=== PATIENT | female | born 1975 | race Caucasian/White ===

== ENCOUNTER 2021-06-29 13:36 | Emergency (ER) | payer BC, OTHER ==
[~2021-06-29] VITALS: Ht 170.2 cm; Wt 69.9 kg
--- NOTE | 2021-06-29 14:02 | NUR ---
PT SEEN AND EVALUATED BY DR MEDELLIN.
[2021-06-29] MEDS ORDERED: ACETAMINOPHEN ES 500 MG TABLET PO ONE (14:15)
[2021-06-29] MEDS ORDERED: ACETAMINOPHEN ES 500 MG TABLET ONE (14:22)
[2021-06-29] MEDS ORDERED: ONDANSETRON ODT 4 MG TAB.RAPDIS SL ONE (15:00)
[2021-06-29] MEDS ORDERED: IBUPROFEN 800 MG TABLET PO ONE (15:00)
[2021-06-29] MEDS ORDERED: ONDA4TAB11 PO (15:09)
--- NOTE | 2021-06-29 15:33 | NUR ---
Pt denies being nauseous at time of D/C, so refused nausea med. Patient discharged to home in stable condition. Written and verbal after care instructions given. Patient verbalizes understanding of instructions. Stressed follow up or return to ER for worsening s/s.
[2021-06-29] MEDS ORDERED: IBUPROFEN 800 MG TABLET ONE (15:34)
[2021-06-29 15:35] VITALS: BP 115/80
== END 2021-06-29 15:30 | disposition home or self-care (01) ==
LOC: ER 13:38
DX: S06.0X0A Concussion without loss of consciousness, initial encounter (principal); W21.05XA Struck by basketball, initial encounter; Y93.9 Activity, unspecified; Y92.89 Other specified places as the place of occurrence of the external cause; Z88.8 Allergy status to other drugs, medicaments and biological substances
CPT/HCPCS: 70450; A4663; A9150

== ENCOUNTER 2021-08-26 11:49 | Emergency (ER) | payer OTHER ==
[~2021-08-26] VITALS: Ht 170.2 cm; Wt 69.9 kg
[~2021-08-26 11:49] MED LIST: ONDA4TAB11 PO
[2021-08-26] MEDS ORDERED: KETOROLAC TROMETHAMINE 15 MG INJ IVP ONE (13:15)
[2021-08-26] MEDS ORDERED: PROCHLORPERAZINE EDISYLATE 10 MG/2 ML VIAL IV ONE (13:15)
[2021-08-26] MEDS ORDERED: IV NORMAL SALINE 1000 ML BAG IV ONE (13:15)
[2021-08-26] MEDS ORDERED: KETOROLAC TROMETHAMINE 15 MG INJ ONE (13:28)
[2021-08-26] MEDS ORDERED: PROCHLORPERAZINE EDISYLATE 10 MG/2 ML VIAL ONE (13:28)
--- NOTE | 2021-08-26 14:17 | NUR ---
pt ambualted with steady gait. pt says feels better and is readyto go home.
--- NOTE | 2021-08-26 14:30 | NUR ---
pt expresses anxiety, md notified.
--- NOTE | 2021-08-26 14:34 | NUR ---
Patient discharged to home in stable condition. Written and verbal after care instructions given. Patient verbalizes understanding of instructions. Stressed follow up or return to ER for worsening s/s.
[2021-08-26 14:36] VITALS: BP 101/77
[2021-08-26] MEDS ORDERED: diphenhydrAMINE 25 MG CAP PO ONE ×2 (14:40→15:15)
== END 2021-08-26 14:37 | disposition home or self-care (01) ==
LOC: ER 11:58
DX: R51.9 Headache, unspecified (principal); Z87.820 Personal history of traumatic brain injury; Z88.8 Allergy status to other drugs, medicaments and biological substances
CPT/HCPCS: 96361; 96374; 96375; 99284; J0780; J1885; Q0163; A4663; J7030